=== PATIENT | female | born 1930 | race Caucasian/White ===

== ENCOUNTER → 2017-01-20 | Outpatient (CLI) | payer MEDICARE ==
[~2017-01-20] MED LIST: ACET-785 PO; AMLO10TA4 PO; BUDE0.5A6 IH; CALC-686 PO; COLE5PAC PO; DOCU-118 PO; FAMO20TA79 PO; FLUT1DIS31; HYDR-696 PO; LISI-126 PO; METO50TA78 PO; OLME1TAB12 PO; POLY17PO3 PO; QUET25TA PO; SIMV20TA89 PO
== END ==
LOC: LABNH.A212 01:10
PROVIDERS: ATTEND Family Medicine
DX: E11.9 Type 2 diabetes mellitus without complications (principal)
CPT/HCPCS: 36415; 83036; P9604

== ENCOUNTER → 2017-02-24 | Outpatient (CLI) | payer MEDICARE ==
[2017-02-24 09:18] LABS: ANION GAP 10 MEQ/L (5-15); BUN/CREATININE RATIO 34 RATIO (6-26); CALCIUM 8.9 MG/DL (8.4-10.2); CHLORIDE 106 MEQ/L (98-107); CO2 - CARBON DIOXIDE 30 MEQ/L (22-30); CREATININE 1.2 MG/DL (0.7-1.2); GLOMERULAR FILTRATION RATE 42; GLUCOSE 117 MG/DL (65-110); SODIUM 146 MEQ/L (134-144)
== END ==
LOC: LABNH.A212 01:39
PROVIDERS: ATTEND Family Medicine
DX: E11.9 Type 2 diabetes mellitus without complications (principal)
CPT/HCPCS: 36415; 80048; P9604